=== PATIENT | female | born 1955 | race Caucasian/White ===

== ENCOUNTER → 2018-05-16 | Outpatient (CLI) | payer MEDICARE, BC ==
[2018-05-16 12:07] LABS: BASO % 1 % (0-3); EOS # 0.1 x10^3/uL (0.0-0.7); EOS % 2 % (0-3); HEMATOCRIT 42.8 % (36.0-47.0); HEMOGLOBIN 14.8 g/dL (12.0-15.5); LYMPH # 2.1 x10^3/uL (1.0-4.8); LYMPH % 32 % (24-48); MEAN CORPUSCULAR HEMOGLOBIN 32 pg (25-35); MEAN CORPUSCULAR HGB CONC 35 g/dL (31-37); MEAN CORPUSCULAR VOLUME 91 fL (79-100); MONO # 0.4 x10^3/uL (0.0-1.1); MONO % 6 % (0-9); NEUT # 3.9 x10^3uL (1.8-7.7); NEUT % 60 % (31-73); PLATELET COUNT 231 x10^3/uL (140-400); RED BLOOD COUNT 4.69 x10^6/uL (3.50-5.40); WHITE BLOOD COUNT 6.5 x10^3/uL (4.0-11.0)
[2018-05-16 12:14] LABS: ALBUMIN/GLOBULIN RATIO 1.1 (1.0-1.7); GFR 55.6; POTASSIUM 3.4 mmol/L (3.5-5.1); TOTAL BILIRUBIN 0.6 mg/dL (0.2-1.0); TOTAL PROTEIN 7.8 g/dL (6.4-8.2)
[2018-05-16 17:09] LABS: TESTOSTERONE TOTAL 29 ng/dL (3-41)
[2018-05-16 17:21] LABS: FREE T4 0.9 ng/dL (0.76-1.46); THYROID STIM HORMONE (TSH) 2.788 uIU/mL (0.358-3.740)
== END | disposition home or self-care (01) ==
LOC: LAB 11:32
PROVIDERS: ATTEND Nurse Practitioner Adult Health
DX: E78.01 Familial hypercholesterolemia (principal); L68.0 Hirsutism; E55.9 Vitamin D deficiency, unspecified; D50.9 Iron deficiency anemia, unspecified; I10 Essential (primary) hypertension; R53.81 Other malaise
CPT/HCPCS: 36415; 80053; 80061; 82306; 83540; 84403; 84439; 84443; 85025

== ENCOUNTER → 2020-08-03 | Outpatient (CLI) | payer MEDICARE, BC ==
--- NOTE | 2020-08-03 14:29 | RAD ---
EXAM: Abdomen and pelvis CT without intravenous contrast. HISTORY: Flank pain. TECHNIQUE: Computed tomographic images of the abdomen and pelvis were obtained without contrast. Mult iplanar reformatting was performed. *One or more of the following individualized dose reduction techniques were utilized for this examina tion: 1. Automated exposure control. 2. Adjustment of the mA and/or kV according to patient size. 3. Use of iterative reconstruction technique. COMPARISON: None. FINDINGS: There is a small left pleural effusion. There is partially consolidated lingular and left l ower lobe infiltrate. There are calcified granulomas within the right lung base. The heart is normal in size. There is a tiny hiatal hernia. There is a prominent distal paratracheal lymph node measuring 8 mm, possibly reactive in etiology. There is hepatic steatosis. No focal hepatic lesion is seen on this noncontrast exam. There is a dist ended gallbladder containing a large stone and additional smaller stones. The pancreas is unremarkabl e. There is a small cyst or hemangioma within a normal sized spleen. The adrenal glands are unremarka ble. The kidneys are unremarkable. There is no evidence of bowel obstruction. There is distal colonic diverticulosis. The bladder is sharon rly empty. The uterus is unremarkable. There is a suspected small left ovarian follicle. There is mod erate abdominal ascites. There is stranding within the mesenteric fat likely due to the presence of a scites. No convincing metastatic soft tissue implant is seen. There is no lymphadenopathy. The aorta is normal in caliber. There is no suspicious osseous lesion. There are several benign bone islands. T here is degenerative change involving the visualized thoracic and lumbar spine. IMPRESSION: 1. Moderate abdominal ascites. Correlate for underlying etiologies such as cirrhosis. 2. Hepatic steatosis. 3. Small left pleural effusion and left lower lobe and lingular infiltrate likely due to pneumonia. F ollow-up to confirm resolution. 4. Colonic diverticulosis. 5. Distended gallbladder containing multiple stones. Gallbladder sonography may be useful for better characterization. 6. Tiny cyst or hemangioma within the spleen. Electronically signed by: Maryann Camacho MD (08/03/2020 2:27 PM) [id number]
== END ==
LOC: CT 13:53
PROVIDERS: ATTEND Nurse Practitioner Adult Health
DX: K76.0 Fatty (change of) liver, not elsewhere classified (principal); K80.20 Calculus of gallbladder without cholecystitis without obstruction; K82.8 Other specified diseases of gallbladder; K57.30 Diverticulosis of large intestine without perforation or abscess without bleeding; J90 Pleural effusion, not elsewhere classified; R18.8 Other ascites; K44.9 Diaphragmatic hernia without obstruction or gangrene
CPT/HCPCS: 74176

== ENCOUNTER 2020-08-23 20:30 | Emergency (ER) | payer MEDICARE, BC ==
[~2020-08-23] VITALS: Ht 154.9 cm; Wt 99.1 kg
[2020-08-23] MEDS ORDERED: ONDANSETRON PF 4 MG/2 ML VIAL. IVP ONE ×2 (21:00→23:00)
--- NOTE | 2020-08-23 21:04 | PHYS DOC ---
General Adult EDM: Chief Complaint: NAUSEA/VOMITING/DIARRHEA HPI: HPI: Patient is a 65-year-old female coming in after 2 episodes of emesis prior to arrival. Patient states that she has been having generalized abdominal pain and distention. Is being worked up by GI and surgery for cholelithiasis and liver failure causing ascites. Has a paracentesis scheduled for 2 days from now. Patient denies any diarrhea or constipation. Denies any fevers, cough, chest pain. No changes in urination. Review of Systems: Review of Systems: All other systems within normal limits except for as noted in the HPI Current Medications: Current Meds: Current Medications Medications (Trade) Dose Ordered Sig/Buddy Start Time Stop Time Status Last Admin Dose Admin Ondansetron HCl (Zofran) 4 mg 1X ONCE 08/23/20 21:00 08/23/20 21:01 UNV Physical Exam: PE: Constitutional: Well developed, well nourished, no acute distress, non-toxic appearance. [] HENT: Normocephalic, atraumatic, bilateral external ears normal, nose normal. [] Eyes: PERRLA, conjunctiva normal, no discharge. [] Neck: No rigidity, supple, no stridor. [] Cardiovascular: Regular rate and rhythm, brisk cap refill [] Lungs & Thorax: Non labored symmetric respirations, no tachypnea or respiratory distress [] Abdomen: Soft, distended but nontense ascites. No focal tenderness. No rebound or guarding. Skin: Warm, dry, no erythema, no rash. [] Back: Unremarkable Extremities: No deformities, range of motion grossly intact, no lower extremity edema [] Neurologic: Alert and oriented X 3, no focal deficits noted. [] Psychologic: Affect normal, judgement normal, mood normal. [] EKG: EKG: Sinus tachycardia with a heart rate of 102 bpm, normal axis, no ST elevation depression, no ectopy. [] Radiology/Procedures: Radiology/Procedures: [] Heart Score: C/O Chest Pain: N/A Risk Factors: Risk Factors: DM, Current or recent (<one month) smoker, HTN, HLP, family history of CAD, obesity. Risk Scores: Score 0 - 3: 2.5% MACE over next 6 weeks - Discharge Home Score 4 - 6: 20.3% MACE over next 6 weeks - Admit for Clinical Observation Score 7 - 10: 72.7% MACE over next 6 weeks - Early Invasive Strategies Course & Med Decision Making: Course & Med Decision Making Vomiting improved with Zofran. Patient has elevated creatinine. Per outside laboratory results patient brought with her her creatinine on July 26 was 1.09, today is 2.7. Concern for hepatorenal syndrome in setting of liver failure and acute kidney injury. Discussed with Dr. Nguyễn, patient's primary care provider, agrees the patient should be transferred to [facility] to facilitate GI, renal, and surgical consults. Dr. Mistry accepts patient care and we will transfer to [facility] Patient has slight leukocytosis possibly due to vomiting. No abdominal tenderness or fever to suggest SBP. Stuart Disclaimer: Stuart Disclaimer: This electronic medical record was generated, in whole or in part, using a voice recognition dictation system. Departure Departure: Impression: Primary Impression: Renal failure, acute Additional Impression: Nausea & vomiting Disposition: 02 DC/TRF OTHER SHORT TERM HOS Admitting Physician: Other Condition: STABLE Referrals: WILL NGUYỄN MD (PCP) KVNG GARZON MD Aug 23, 2020 21:04
[2020-08-23 21:36] LABS: BASO # 0.1 x10^3/uL (0.0-0.2); BASO % 1 % (0-3); EOS % 0 % (0-3); HEMATOCRIT 36.5 % (36.0-47.0); HEMOGLOBIN 11.8 g/dL (12.0-15.5); LYMPH # 0.6 x10^3/uL (1.0-4.8); LYMPH % 5 % (24-48); MEAN CORPUSCULAR HEMOGLOBIN 29 pg (25-35); MEAN CORPUSCULAR HGB CONC 32 g/dL (31-37); MEAN CORPUSCULAR VOLUME 88 fL (79-100); MONO # 0.9 x10^3/uL (0.0-1.1); MONO % 7 % (0-9); NEUT # 10.4 x10^3uL (1.8-7.7); NEUT % 87 % (31-73); PLATELET COUNT 542 x10^3/uL (140-400); RED BLOOD COUNT 4.16 x10^6/uL (3.50-5.40); RED CELL DISTRIBUTION WIDTH 13.7 % (11.5-14.5)
[2020-08-23 21:44] LABS: CALCIUM 8.8 mg/dL (8.5-10.1); CREATININE 2.7 mg/dL (0.6-1.0); GFR 17.6; POTASSIUM 4.6 mmol/L (3.5-5.1)
[2020-08-23 21:49] LABS: ALBUMIN 2.8 g/dL (3.4-5.0); ALBUMIN/GLOBULIN RATIO 0.8 (1.0-1.7); TOTAL BILIRUBIN 0.4 mg/dL (0.2-1.0); TOTAL PROTEIN 6.2 g/dL (6.4-8.2)
[2020-08-23 22:00] LABS: % BANDS 1 % (0-9); % LYMPHS 4 % (24-48); % MONOS 6 % (0-10); % SEGS 89 % (35-66)
[2020-08-23 22:01] LABS: PLT ESTIMATE INCREASED (ADEQUATE)
--- NOTE | 2020-08-23 22:12 | EKG ---
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
[2020-08-23 23:05] VITALS: BP 154/70
== END 2020-08-23 23:18 | disposition short-term general hospital (02) ==
LOC: ER 20:30
DX: N17.9 Acute kidney failure, unspecified (principal); R11.2 Nausea with vomiting, unspecified
CPT/HCPCS: 36415; 80053; 83690; 84484; 85007; 85025; 85610; 93005; 96374; 96376; 99285; J2405

== ENCOUNTER → 2021-04-04 | Outpatient (CLI) | payer MEDICARE, BC ==
--- NOTE | 2021-04-06 14:58 | RAD ---
INDICATION : Routine Screening. COMPARISON: January 2018 TECHNIQUE: Standard mammogram screening views of the bilateral breasts were obtained. CAD was utilize d. FINDINGS: The breasts are scattered density. No definite suspicious mass. IMPRESSION: BI-RADS Category 2: Benign findings. Recommend repeat screening examination one year. The patient was placed into the recall system with a suggested recall date for follow up imaging. Mammography is the most sensitive method for finding small breast cancers, but it does not detect the m all and is not a substitute for careful clinical examination. A negative mammogram does not negate a clinically suspicious finding and should not result in delay in biopsying a clinically suspicious abnormality. Electronically signed by: Chalo Wakefield MD (04/06/2021 2:56 PM) [id number]
== END ==
LOC: MAMMO 11:24
PROVIDERS: ATTEND Family Medicine
DX: Z12.31 Encounter for screening mammogram for malignant neoplasm of breast (principal)
CPT/HCPCS: 77067

== ENCOUNTER → 2021-05-18 | Outpatient (CLI) | payer MEDICARE, BC ==
[~2021-05-18] MED LIST: IOHEXOL 300 MG/ML 75 ML VIAL. IV ONE
--- NOTE | 2021-05-18 12:17 | RAD ---
EXAM: Chest, abdomen and pelvis CT with intravenous contrast. HISTORY: Endometrial cancer. TECHNIQUE: Computed tomographic images of the chest, abdomen and pelvis were obtained following the a dministration of intravenous contrast. Multiplanar reformatting was performed. *One or more of the following individualized dose reduction techniques were utilized for this examina tion: 1. Automated exposure control. 2. Adjustment of the mA and/or kV according to patient size. 3. Use of iterative reconstruction technique. COMPARISON: 09/01/2020. FINDINGS: Chest: There is a small left pleural effusion. The heart is upper normal in size. The aorta is normal in caliber. There is a bovine aortic arch branching pattern, a normal variant. There is a right ches t wall port catheter in expected position. There is no mediastinum or hilar or axillary lymphadenopat hy. There is no pneumothorax. There is a 1.5 cm groundglass opacity within the anterior medial right upper lobe. There is a 9 mm so lid nodule within the posterior right lower lobe. There is a 4 mm nodule within the superior segment of the right lower lobe. There is a 10 mm nodule within the posterior left lower lobe. There is an 8 mm nodule within the lingula. There are calcified right hilar and lower lobe granulomas. There are de generative changes involving the thoracic spine. This includes a posterior central to right paracentr al disc protrusion and slight inferior extrusion at T7-T8. Abdomen and pelvis: No hepatic lesion is seen. There are multiple large stones within the gallbladder . The pancreas, spleen and adrenal glands are unremarkable. The kidneys and bladder are unremarkable. There is no appendicitis. There is no bowel obstruction. There is moderate colonic stool. There is d istal colonic diverticulosis. The uterus is absent. There is fatty stranding within the ventral peritoneum of the right midabdomen. There are multiple prominent retroperitoneal lymph nodes. This includes a hypodense aortocaval lymph node measuring 7 mm. There is trace pelvic free fluid. The aorta is normal in caliber. There is dege nerative change involving the spine. There are few benign bone islands. There is postoperative scarri ng within the ventral abdominal wall. IMPRESSION: 1. Multiple solid and groundglass pulmonary nodules, new compared to the prior study and concerning f or metastatic disease. The largest solid nodules measure 9 mm within the posterior right lower lobe a nd 10 mm within the posterior left lower lobe. 2. Multiple prominent retroperitoneal lymph nodes, the most suspicious of which demonstrate internal hypodensity in the cavoatrial distribution measuring 7 mm. The interval change is concerning for prog ressive metastatic disease. 3. Decrease in a now small left pleural effusion and resolution of previously demonstrated abdominal ascites. There is stranding within the ventral peritoneum of the right midabdomen which may be due to prior ascites. No convincing solid metastatic implant is seen. 4. Colonic diverticulosis. 5. Cholelithiasis. Electronically signed by: Maryann Camacho MD (05/18/2021 12:14 PM) [id number]
== END ==
LOC: CT 09:04
PROVIDERS: ATTEND Clinical Nurse Specialist Oncology
DX: C54.1 Malignant neoplasm of endometrium (principal); R91.8 Other nonspecific abnormal finding of lung field; J90 Pleural effusion, not elsewhere classified; J84.10 Pulmonary fibrosis, unspecified; K57.30 Diverticulosis of large intestine without perforation or abscess without bleeding; K80.20 Calculus of gallbladder without cholecystitis without obstruction; M47.814 Spondylosis without myelopathy or radiculopathy, thoracic region; M51.24 Other intervertebral disc displacement, thoracic region
CPT/HCPCS: 71260; 74177; Q9967